=== PATIENT | female | born 1990 | race Caucasian/White ===

== ENCOUNTER 2018-08-17 15:46 | Outpatient (CLI) | payer BC, MEDICAID ==
[2018-08-17] MEDS ORDERED: RINGERS SOLUTION,LACTATED 1,000 ML IV ONE (16:16)
[2018-08-17 16:35] LABS: AMORPHOUS SEDIMENT,URINE TRACE /HPF; APPEARANCE,URINE CLOUDY; BACTERIA (WET MOUNT) 4+ BACTERIA SEEN; BILIRUBIN,URINE NEGATIVE (NEGATIVE); COLOR,URINE YELLOW; EPITHELIALS (WET MOUNT) 4+ EPITHELIALS SEEN; GLUCOSE, URINE NEGATIVE (NEGATIVE); KETONES,URINE NEGATIVE (NEGATIVE); LEUKOCYTE ESTERASE,URINE NEGATIVE (NEGATIVE); NITRITE,URINE NEGATIVE (NEGATIVE); PROTEIN,URINE NEGATIVE (NEGATIVE); T.VAGINALIS (WET MOUNT) NO TRICHOMONAS SEEN; URINE SPECIFIC GRAVITY 1.021; UROBILINOGEN,URINE NEGATIVE mg/dL (<2.0); WBCS (WET MOUNT) FEW WBCS SEEN; YEAST (WET MOUNT) NO YEAST SEEN
[2018-08-17 16:52] LABS: URINE AMPHETAMINES SCREEN NEGATIVE; URINE BARBITURATES SCREEN NEGATIVE; URINE BENZODIAZEPINES SCREEN NEGATIVE; URINE COCAINE SCREEN NEGATIVE; URINE MARIJUANA (THC) SCREEN NEGATIVE; URINE METHADONE SCREEN NEGATIVE; URINE PHENCYCLIDINE SCREEN NEGATIVE
[2018-08-17 18:44] LABS: CHLAM PCR NOT DETECTED (NOT DETECT); GON PCR NOT DETECTED (NOT DETECT)
--- NOTE | 2018-08-17 19:51 | L&D Progress Notes ---
PROGRESS NOTES Datetime Report Generated by CPN: 08/17/2018 19:51 PROGRESS NOTE Impression Other: contractions Plan Other: FFN, STD panel Vital Signs : Reviewed; Within Normal Limits Comment: FFN Neg; STD panel neg. UA neg; Cervix is closed and thick. Pt received LR 2L and states that she feels better. Discharge home. LAST VAGINAL EXAM-NURSING Dilitation: closed Effacement: thick Station: high Contractions: r/t full bladder FETUS A FHR - Baseline: 120s Monitoring: External US Variability: Moderate 6-25bpm Accelerations: 15X15 Decelerations: None FHR Category: Category I : 33.5 SIGNATURE SIGNATURE: [id number] Signature: with User ID: [email or web address]
== END 2018-08-17 19:52 | disposition home or self-care (01) ==
LOC: LC 15:46
PROVIDERS: ATTEND Obstetrics & Gynecology
PROC: 4A1HXCZ Monitoring of Products of Conception, Cardiac Rate, External Approach (ICD-10-PCS; principal; 2018-08-17)
DX: O47.03 False labor before 37 completed weeks of gestation, third trimester (principal); O99.283 Endocrine, nutritional and metabolic diseases complicating pregnancy, third trimester; E86.0 Dehydration; Z3A.33 33 weeks gestation of pregnancy
CPT/HCPCS: 80307; 81001; 82731; 84112; 87210; 87491; 87591